=== PATIENT | male | born 1975 | race Caucasian/White ===

== ENCOUNTER 2020-05-20 14:08 | Emergency (ER) | payer OTHER ==
[~2020-05-20] VITALS: Ht 182.9 cm; Wt 105.2 kg
[2020-05-20 14:18] VITALS: BP 143/68
[2020-05-20] MEDS ORDERED: DOXY100T2 PO (14:34)
[2020-05-20] MEDS ORDERED: DOXYCYCLINE HYCLATE (100 MG) 100 MG TABLET ONE (14:41)
[2020-05-20] MEDS ORDERED: LIDOCAINE /MPF 1% VIAL 5 ML VIAL ONE (14:41)
[2020-05-20] MEDS ORDERED: CEFTRIAXONE 1 G VIAL ONE (14:41)
[2020-05-20] MEDS: DOXYCYCLINE HYCLATE (100 MG) 100 MG TABLET PO ONE (14:51)
[2020-05-20] MEDS: CEFTRIAXONE 500 MG VIAL IM ONE (14:51)
[2020-05-20 15:32] LABS: BILIRUBIN,URINE NEGATIVE (NEGATIVE); COLOR,URINE YELLOW (YELLOW); LEUKOCYTE ESTERASE ,URINE SMALL (NEGATIVE); NITRITE, URINE NEGATIVE (NEGATIVE); PROTEIN,URINE NEGATIVE (NEGATIVE); UGLUCOSE NEGATIVE (NEGATIVE); UROBILINOGEN,URINE 0.2 EU/dL (0.2)
[2020-05-20 15:39] LABS: BACTERIA,URINE 1+ /HPF (None Seen); RBC,URINE 0-2 /HPF (0-2); SQUAMOUS EPITHELIAL CELL,UR 0-2 /HPF (None Seen)
== END 2020-05-20 14:52 | disposition home or self-care (01) ==
LOC: ER 14:13
DX: A64 Unspecified sexually transmitted disease (principal)
CPT/HCPCS: 81001; 87086; 87491; 87591; 96372; 99283; J0696; J3490

== ENCOUNTER → 2021-02-03 | Emergency (ER) | payer OTHER ==
[~2021-02-03] VITALS: Ht 185.4 cm; Wt 104.3 kg
[~2021-02-03] MED LIST: CEFTRIAXONE 500 MG VIAL IM ONE; CEFTRIAXONE 500 MG VIAL ONE; DOXY-326 PO; DOXY100T2 PO; LIDOCAINE /MPF 1% VIAL 5 ML VIAL ONE
[2021-02-03 11:05] VITALS: BP 128/85
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
--- NOTE | 2021-02-03 11:22 | NUR ---
Patient discharged to home in stable condition. Written and verbal after care instructions given. Patient verbalizes understanding of instruction.
--- NOTE | 2021-02-03 11:27 | NUR ---
UNABLE TO DEPART THE PATIENT FROM [facility]
== END | disposition home or self-care (01) ==
LOC: ER 14:43
DX: A64 Unspecified sexually transmitted disease (principal)
CPT/HCPCS: 96372; 99283; J0696; J3490

== ENCOUNTER 2021-12-21 16:59 | Emergency (ER) | payer MEDICAID, OTHER ==
[~2021-12-21] VITALS: Ht 182.9 cm; Wt 108.9 kg
[~2021-12-21 16:59] MED LIST changes: -CEFTRIAXONE 500 MG VIAL IM ONE; -CEFTRIAXONE 500 MG VIAL ONE; -LIDOCAINE /MPF 1% VIAL 5 ML VIAL ONE
[2021-12-21 17:07] VITALS: BP 123/97
--- NOTE | 2021-12-21 17:58 | NUR ---
COVID SWAB DONE AND SENT TO LAB
--- NOTE | 2021-12-21 20:14 | NUR ---
PT IS MEDICALLY CLEARED FOR BOOKIGN AND RELEASED UNDER THE CARE OF [employer] OFFICERS IN STABLOE CONDITION. PT IS AMBULATORY AND LEFT ON HANDCUFFS
== END 2021-12-21 20:15 ==
LOC: ER 17:04
DX: Z02.89 Encounter for other administrative examinations (principal); Z20.822 Contact with and (suspected) exposure to COVID-19
CPT/HCPCS: 99283; 87426; C9803

== ENCOUNTER → 2022-05-04 | Emergency (ER) | payer OTHER ==
[~2022-05-04] VITALS: Ht 182.9 cm; Wt 102.1 kg
[~2022-05-04] MED LIST changes: +CEFTRIAXONE 500 MG VIAL IM ONE; +CEFTRIAXONE 500 MG VIAL ONE; +DIVA-78 PO; -DOXY100T2 PO; +DOXYCYCLINE HYCLATE (100 MG) 100 MG TABLET ONE; +DOXYCYCLINE HYCLATE (100 MG) 100 MG TABLET PO ONE; +DULO60CA45 PO; +GABA300C PO; +LEVE750T10 PO; +LOSA100T31 PO; +OLAN20TA3 PO; +OXYC1TAB12 PO; +PANT40TA2 PO
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
--- NOTE | 2022-05-04 07:33 | NUR ---
URINE COLLECTED AND SENT TO LAB.
--- NOTE | 2022-05-04 08:13 | NUR ---
Patient discharged to home in stable condition. Written and verbal after care instructions given. Patient verbalizes understanding of instruction.
[2022-05-04 08:16] VITALS: BP 150/92
== END ==
LOC: ER 07:36
DX: N34.2 Other urethritis (principal); A64 Unspecified sexually transmitted disease; Z79.899 Other long term (current) drug therapy
CPT/HCPCS: 99283; 96372; J0696